=== PATIENT | male | born 1950 | race Caucasian/White ===

== ENCOUNTER → 2017-06-13 | Outpatient (CLI) | payer MEDICARE, BC ==
--- NOTE | 2017-06-13 12:41 | EST ---
EXERCISE STRESS AGE: 66 SEX: M HT: 58" WT: 268 PROTOCOL: Alfonzo Stress Test STAGE: II DURATION OF EXERCISE: 6:45 HEART RATE REST: 70 BLOOD PRESSURE REST: 161/73 MAXIMUM HEART RATE ACHIEVED: 133 MAXIMUM BLOOD PRESSURE: 237/68 85% MPHR: 130 100% MPHR: 153 METS: 8.1 INDICATIONS: Physical. Cardiac evaluation. CLINICAL INFORMATION: Baseline EKG shows sinus rhythm, normal axis, normal intervals. Patient exercised on Alfonzo protocol for a total of 6 minutes and 45 seconds achieving 8 METS, 86% of predicted maximal heart rate without chest pain or diagnostic ST-segment depression. CONCLUSION: 1. Above-average exercise tolerance. 2. Negative stress test by EKG criteria. MMODL / IJN: [id number] /
== END ==
LOC: RADNMMAIN 10:12
PROVIDERS: ATTEND Family Medicine
DX: I10 Essential (primary) hypertension (principal); E78.5 Hyperlipidemia, unspecified; Z87.891 Personal history of nicotine dependence; Z82.49 Family history of ischemic heart disease and other diseases of the circulatory system
CPT/HCPCS: 93017

== ENCOUNTER → 2019-02-11 | Outpatient (CLI) | payer MEDICARE, BC ==
--- NOTE | 2019-02-11 10:42 | ECHOF ---
Referral Reason:I10 essential hypertension MEASUREMENTS -------- HEIGHT: 172.7 cm WEIGHT: 120.2 kg BP: 188/87 RVIDd: 3.4 cm (< 3.3) IVSd: 1.2 cm (0.6 - 1.1) LVIDd: 4.8 cm (3.9 - 5.3) LVPWd: 1.3 cm (0.6 - 1.1) IVSs: 1.7 cm LVIDs: 3.2 cm LVPWs: 1.8 cm LA Diam: 3.4 cm (2.7 - 3.8) LAESV Index (A-L): 28.47 ml/m Ao Diam: 3.1 cm (2.0 - 3.7) AV Cusp: 2.0 cm (1.5 - 2.6) MV EXCURSION: 18.395 mm (> 18.000) MV EF SLOPE: 116 mm/s (70 - 150) EPSS: 0.3 cm MV E Casey: 0.72 m/s MV DecT: 245 ms MV A Casey: 0.71 m/s MV E/A Ratio: 1.01 AV maxP.49 mmHg AV meanP.09 mmHg FINDINGS -------- Sinus rhythm. This was a technically adequate study. The left ventricular size is normal. There is mild concentric left ventricular hypertrophy. Overa ll left ventricular systolic function is normal with, an EF between 60 - 65 %. The right ventricle is mildly enlarged. Normal LA size by volume 22+/-6 ml/m2. The right atrium is normal in size. Interatrial and interventricular septum intact. There is mild aortic valve sclerosis. There is mild aortic stenosis present. The mitral valve is normal. The tricuspid valve appears structurally normal. The pulmonic valve was not well visualized. The aortic root size is normal. Normal inferior vena cava with normal inspiratory collapse consistent with estimated right atrial pre ssure of 5 mmHg. There is no pericardial effusion. CONCLUSIONS -------- 1. Sinus rhythm. 2. This was a technically adequate study. 3. The left ventricular size is normal. 4. There is mild concentric left ventricular hypertrophy. 5. Overall left ventricular systolic function is normal with, an EF between 60 - 65 %. 6. The right ventricle is mildly enlarged. 7. Normal LA size by volume 22+/-6 ml/m2. 8. The right atrium is normal in size. 9. Interatrial and interventricular septum intact. 10. There is mild aortic valve sclerosis. 11. There is mild aortic stenosis present. 12. The mitral valve is normal. 13. The tricuspid valve appears structurally normal. 14. The pulmonic valve was not well visualized. 15. The aortic root size is normal. 16. Normal inferior vena cava with normal inspiratory collapse consistent with estimated right atrial pressure of 5 mmHg. 17. There is no pericardial effusion. REPORT SPECIALIST: Mray Kirby RDCS
== END | disposition home or self-care (01) ==
LOC: RADECHMAIN 08:18
PROVIDERS: ATTEND Nurse Practitioner Family
DX: I35.0 Nonrheumatic aortic (valve) stenosis (principal); E78.5 Hyperlipidemia, unspecified; I10 Essential (primary) hypertension
CPT/HCPCS: 93306

== ENCOUNTER 2020-07-22 15:49 | Emergency (ER) | payer MEDICARE, BC ==
[2020-07-22] MEDS ORDERED: ACETAMINOPHEN TAB 500 MG TAB PO STA (16:28)
--- NOTE | 2020-07-22 16:32 | ED ---
General Adult HPI - General Chief complaint: Recheck/Abnormal Lab/Rx Stated complaint: Shaking Time Seen by Provider: 07/22/20 16:10 Source: patient, family, RN notes reviewed Mode of arrival: ambulatory Limitations: no limitations - History of Present Illness Initial comments: Patient is a pleasant 70-year-old male presenting to the emergency Department with complaints of shaking. Patient had mild symptoms yesterday, worse today. Patient did take Motrin around 2 hours ago. Patient states shaking has started to improve. Patient did have some nausea earlier. No vomiting. No abdominal pain. patient diarrhea. No cough or dyspnea. No upper a story symptoms. No rash. No headache. Patient did have rotavirus infection back in April. Yoon cavanaugh received his first immunization between 2 and 2 and half weeks ago. - Related Data Previous Rx's Medication Instructions Recorded Amoxic-Pot Clav 875-125Mg 1 tab PO BID 7 Days #14 tab 07/22/20 [Augmentin 875-125] Allergies Allergy/AdvReac Type Severity Reaction Status Date / Time No Known Allergies Allergy Verified 07/22/20 16:07 Review of Systems ROS Statement: Those systems with pertinent positive or pertinent negative responses have been documented in the HPI. ROS Other: All systems not noted in ROS Statement are negative. Constitutional: Reports: chills Eyes: Denies: eye pain ENT: Denies: ear pain Respiratory: Denies: cough, dyspnea Cardiovascular: Denies: chest pain Endocrine: Denies: fatigue Gastrointestinal: Reports: nausea. Denies: abdominal pain, vomiting Genitourinary: Denies: dysuria Musculoskeletal: Denies: back pain Skin: Denies: rash Neurological: Denies: headache, weakness Past Medical History Past Medical History: Diabetes Mellitus, Hyperlipidemia, Hypertension History of Any Multi-Drug Resistant Organisms: None Reported Past Surgical History: No Surgical Hx Reported Smoking Status: Former smoker General Exam Limitations: no limitations General appearance: alert, in no apparent distress Head exam: Present: normocephalic Eye exam: Present: normal appearance ENT exam: Present: normal oropharynx Neck exam: Present: normal inspection. Absent: tenderness, meningismus Respiratory exam: Present: normal lung sounds bilaterally Cardiovascular Exam: Present: regular rate, normal rhythm GI/Abdominal exam: Present: soft. Absent: tenderness Extremities exam: Present: pedal edema (States chronic and unchanged). Absent: calf tenderness Neurological exam: Present: alert Psychiatric exam: Present: normal affect, normal mood Skin exam: Present: normal color. Absent: rash Course Vital Signs 07/22/20 07/22/20 07/22/20 16:03 18:09 19:31 Temperature 101.1 F H 103 F H 101.3 F H Pulse Rate 105 H 119 H 120 H Respiratory 18 16 16 Rate Blood Pressure 185/69 143/65 124/66 O2 Sat by Pulse 97 97 95 Oximetry EKG Findings - EKG Comments: EKG Findings:: Sinus tachycardia 121. UT 200. QRS 88. QT 296. QTc 420. Normal axis. Normal QRS. No acute ST change. Medical Decision Making - Medical Decision Making Patient reevaluated and states he started to feel better. Secondary to white blood cell count, fever, and tachycardia patient was advised for admission. Case was discussed with Dr. ramirez, covering for hospital call, who does agree with admission. Consult was replaced with infectious disease Dr. Peraza. Patient updated regarding this however refuses. Patient states he is feeling better and it is not necessary for him to stay in the hospital. Patient does demonstrate medical decision making. Patient is aware of recommendation. Patient will leave against pediatric medical assistant. - Lab Data Result diagrams: 07/22/20 16:55 07/22/20 16:55 Lab Results 07/22/20 07/22/20 07/22/20 Range/Units 16:55 16:55 16:55 WBC 14.5 H (3.8-10.6) k/uL RBC 5.13 (4.30-5.90) m/uL Hgb 14.8 (13.0-17.5) gm/dL Hct 43.6 (39.0-53.0) % MCV 85.0 (80.0-100.0) fL MCH 28.8 (25.0-35.0) pg MCHC 33.8 (31.0-37.0) g/dL RDW 13.6 (11.5-15.5) % Plt Count 171 (150-450) k/uL MPV 8.1 Neutrophils % 93 % Lymphocytes % 3 % Monocytes % 3 % Eosinophils % 1 % Basophils % 0 % Neutrophils # 13.4 H (1.3-7.7) k/uL Lymphocytes # 0.5 L (1.0-4.8) k/uL Monocytes # 0.5 (0-1.0) k/uL Eosinophils # 0.1 (0-0.7) k/uL Basophils # 0.0 (0-0.2) k/uL PT 10.4 (9.0-12.0) sec INR 1.0 (<1.2) APTT 22.3 (22.0-30.0) sec Sodium 138 (137-145) mmol/L Potassium 4.0 (3.5-5.1) mmol/L Chloride 103 (98-107) mmol/L Carbon Dioxide 28 (22-30) mmol/L Anion Gap 7 mmol/L BUN 21 H (9-20) mg/dL Creatinine 0.94 (0.66-1.25) mg/dL Est GFR (CKD-EPI)AfAm >90 (>60 ml/min/1.73 sqM) Est GFR (CKD-EPI)NonAf 82 (>60 ml/min/1.73 sqM) Glucose 149 H (74-99) mg/dL Plasma Lactic Acid Jp (0.7-2.0) mmol/L Calcium 9.3 (8.4-10.2) mg/dL Magnesium 1.8 (1.6-2.3) mg/dL Total Bilirubin 0.8 (0.2-1.3) mg/dL AST 29 (17-59) U/L ALT 23 (4-49) U/L Alkaline Phosphatase 75 (38-126) U/L Lactate Dehydrogenase 536 (313-618) U/L C-Reactive Protein <5.0 (<10.0) mg/L Total Protein 7.1 (6.3-8.2) g/dL Albumin 4.3 (3.5-5.0) g/dL Urine Color Urine Appearance (Clear) Urine pH (5.0-8.0) Ur Specific [place] (1.001-1.035) Urine Protein (Negative) Urine Glucose (UA) (Negative) Urine Ketones (Negative) Urine Blood (Negative) Urine Nitrite (Negative) Urine Bilirubin (Negative) Urine Urobilinogen (<2.0) mg/dL Ur Leukocyte Esterase (Negative) Urine RBC (0-5) /hpf Urine WBC (0-5) /hpf Ur Squamous Epith Cells (0-4) /hpf 02/17/21 02/17/21 Range/Units 16:55 16:55 WBC (3.8-10.6) k/uL RBC (4.30-5.90) m/uL Hgb (13.0-17.5) gm/dL Hct (39.0-53.0) % MCV (80.0-100.0) fL MCH (25.0-35.0) pg MCHC (31.0-37.0) g/dL RDW (11.5-15.5) % Plt Count (150-450) k/uL MPV Neutrophils % % Lymphocytes % % Monocytes % % Eosinophils % % Basophils % % Neutrophils # (1.3-7.7) k/uL Lymphocytes # (1.0-4.8) k/uL Monocytes # (0-1.0) k/uL Eosinophils # (0-0.7) k/uL Basophils # (0-0.2) k/uL PT (9.0-12.0) sec INR (<1.2) APTT (22.0-30.0) sec Sodium (137-145) mmol/L Potassium (3.5-5.1) mmol/L Chloride (98-107) mmol/L Carbon Dioxide (22-30) mmol/L Anion Gap mmol/L BUN (9-20) mg/dL Creatinine (0.66-1.25) mg/dL Est GFR (CKD-EPI)AfAm (>60 ml/min/1.73 sqM) Est GFR (CKD-EPI)NonAf (>60 ml/min/1.73 sqM) Glucose (74-99) mg/dL Plasma Lactic Acid Jp 1.8 (0.7-2.0) mmol/L Calcium (8.4-10.2) mg/dL Magnesium (1.6-2.3) mg/dL Total Bilirubin (0.2-1.3) mg/dL AST (17-59) U/L ALT (4-49) U/L Alkaline Phosphatase (38-126) U/L Lactate Dehydrogenase (313-618) U/L C-Reactive Protein (<10.0) mg/L Total Protein (6.3-8.2) g/dL Albumin (3.5-5.0) g/dL Urine Color Yellow Urine Appearance Clear (Clear) Urine pH 6.0 (5.0-8.0) Ur Specific [place] 1.019 (1.001-1.035) Urine Protein Negative (Negative) Urine Glucose (UA) Negative (Negative) Urine Ketones Trace H (Negative) Urine Blood Negative (Negative) Urine Nitrite Negative (Negative) Urine Bilirubin Negative (Negative) Urine Urobilinogen 4.0 (<2.0) mg/dL Ur Leukocyte Esterase Trace H (Negative) Urine RBC <1 (0-5) /hpf Urine WBC 3 (0-5) /hpf Ur Squamous Epith Cells <1 (0-4) /hpf - Radiology Data Radiology results: image reviewed (Chest x-ray reveals no acute process) Disposition Clinical Impression: Fever Disposition: Left Against Medical Advice Instructions (If sedation given, give patient instructions): Fever in Adults (ED) Additional Instructions: please do follow-up with primary care physician tomorrow. [id number] Tylenol or Motrin as needed. Return for uncontrolled fevers, weakness, difficulty breathing, worsening or changing symptoms or other concerns. Prescription for diabetic has been sent to your pharmacy. [facility] [place] Prescriptions: Amoxic-Pot Clav 875-125Mg [Augmentin 875-125] 1 tab PO BID 7 Days #14 tab Is patient prescribed a controlled substance at d/c from ED?: No Referrals: Angelica Magallon III, MD [STAFF PHYSICIAN] - 1-2 days Time of Disposition: 20:10
[2020-07-22 17:20] LABS: Appearance,Urine Clear (Clear); Bilirubin,Urine Negative (Negative); Blood,Urine Negative (Negative); Color,Urine Yellow; Glucose,Urine (UA) Negative (Negative); Ketones,Urine Trace (Negative); Leukocyte Esterase,Urine Trace (Negative); Nitrite,Urine Negative (Negative); Protein,Urine Negative (Negative); RBC,Urine <1 /hpf (0-5); Specific Gravity,Urine 1.019 (1.001-1.035); Squamous Epithelial Cell,Urine <1 /hpf (0-4); WBC,Urine 3 /hpf (0-5)
[2020-07-22 17:21] LABS: ALT 23 U/L (4-49); AST 29 U/L (17-59); African American GFR (CKD) >90 (>60 ml/min/1.73 sqM); Albumin 4.3 g/dL (3.5-5.0); Alkaline Phosphatase 75 U/L (38-126); Anion Gap 7 mmol/L; Blood Urea Nitrogen 21 mg/dL (9-20); C Reactive Protein <5.0 mg/L (<10.0); Calcium 9.3 mg/dL (8.4-10.2); Carbon Dioxide 28 mmol/L (22-30); Chloride 103 mmol/L (98-107); Glucose 149 mg/dL (74-99); LDH 536 U/L (313-618); Magnesium 1.8 mg/dL (1.6-2.3); Non-African American GFR(CKD) 82 (>60 ml/min/1.73 sqM); Sodium 138 mmol/L (137-145); Total Bilirubin 0.8 mg/dL (0.2-1.3); Total Protein 7.1 g/dL (6.3-8.2)
[2020-07-22 17:35] LABS: Basophils % (A) 0 %; Eosinophils # (A) 0.1 k/uL (0-0.7); Eosinophils % (A) 1 %; HCT 43.6 % (39.0-53.0); HGB 14.8 gm/dL (13.0-17.5); Lymphocytes # (A) 0.5 k/uL (1.0-4.8); Lymphocytes % (A) 3 %; MCH 28.8 pg (25.0-35.0); MCHC 33.8 g/dL (31.0-37.0); Mean Platelet Volume 8.1; Monocytes # (A) 0.5 k/uL (0-1.0); Monocytes % (A) 3 %; Neutrophils # (A) 13.4 k/uL (1.3-7.7); Neutrophils % (A) 93 %; Platelet Count 171 k/uL (150-450); RBC 5.13 m/uL (4.30-5.90); RDW 13.6 % (11.5-15.5); WBC 14.5 k/uL (3.8-10.6)
[2020-07-22 17:43] LABS: Partial Thromboplastin Time 22.3 sec (22.0-30.0); Prothrombin Time 10.4 sec (9.0-12.0)
--- NOTE | 2020-07-22 18:01 | XR ---
EXAMINATION TYPE: XR chest 2V DATE OF EXAM: 07/22/2020 COMPARISON: NONE HISTORY: Fever. Hypertension. TECHNIQUE: 2 views FINDINGS: Heart is normal. Lungs are clear of consolidation. There is no hilar masses. Bony thorax is intact. Thoracic aorta is atheromatous. IMPRESSION: No active cardiopulmonary disease.
[2020-07-22 18:09] VITALS: RESP 16
[2020-07-22] MEDS ORDERED: IBUPROFEN 600 MG TAB PO STA (18:26)
[2020-07-22 19:34] VITALS: BP 124/66
[2020-07-22 21:05] VITALS: PULSE 115; TEMP 99.1
[2020-07-23 02:08] LABS: Ferritin 243.3 ng/mL (22.0-322.0)
== END 2020-07-22 20:41 | disposition left against medical advice (07) ==
LOC: EC 15:49
DX: R50.9 Fever, unspecified (principal); R00.0 Tachycardia, unspecified; Z87.891 Personal history of nicotine dependence; Z53.29 Procedure and treatment not carried out because of patient's decision for other reasons
CPT/HCPCS: 36415; 71046; 80053; 81001; 82728; 83605; 83615; 83735; 84145; 85025; 85610; 85730; 86140; 87040; 93005; 99284

== ENCOUNTER 2020-07-23 09:20 | Inpatient (IN) | payer BC, MEDICARE ==
[2020-07-23] MEDS ORDERED: PIPERACILLIN-TAZOBACTAM 3.375 GM in SODIUM CHLORIDE 0.9% 100 ML IVPB STA (10:03)
[2020-07-23] MEDS ORDERED: VANCOMYCIN IV PER PHARMACY 1 EACH MISC MISCELLANE PRN (10:03)
[2020-07-23] MEDS ORDERED: VANCOMYCIN 2,250 MG in SODIUM CHLORIDE 0.9% 500 ML 500 ML IVPB ONE (10:15)
--- NOTE | 2020-07-23 10:29 | ED ---
General Adult HPI - General Chief complaint: Extremity Problem,Nontraumatic Stated complaint: Leg swelling Source: patient, family, RN notes reviewed, old records reviewed Mode of arrival: ambulatory Limitations: no limitations - History of Present Illness Initial comments: This is a 70-year-old male who presents emergency Department stating that he was here last night but refused to stay. Patient comes back because his leg is more red and more swollen and continues to have a temperature. Patient states she's been to her Motrin Tylenol throughout the night. Patient states she was given a prescription for and about if they did not get it filled. Patient denies any difficulty breathing shortness of breath or cough per patient denies abdominal pain patient denies nausea vomiting diarrhea. Patient headache patient denies numbness weakness. Patient states his temperature was 103 at one point. - Related Data Home Medications Medication Instructions Recorded Confirmed Aspirin EC [Ecotrin Low Dose] 81 mg PO DAILY 07/23/20 07/23/20 Furosemide [Lasix] 20 mg PO BID 07/23/20 07/23/20 Potassium Chloride ER [K-Dur 10] 10 meq PO DAILY 07/23/20 07/23/20 Simvastatin [Zocor] 80 mg PO HS 07/23/20 07/23/20 amLODIPine [Norvasc] 5 mg PO BID 07/23/20 07/23/20 lisinopriL 20 mg PO BID 07/23/20 07/23/20 metFORMIN HCL [Glucophage] 500 mg PO DAILY 07/23/20 07/23/20 Allergies Allergy/AdvReac Type Severity Reaction Status Date / Time No Known Allergies Allergy Verified 07/23/20 10:57 Review of Systems ROS Statement: Those systems with pertinent positive or pertinent negative responses have been documented in the HPI. ROS Other: All systems not noted in ROS Statement are negative. Past Medical History Past Medical History: Diabetes Mellitus, Hyperlipidemia, Hypertension History of Any Multi-Drug Resistant Organisms: None Reported Past Surgical History: No Surgical Hx Reported Smoking Status: Former smoker Past Alcohol Use History: None Reported Past Drug Use History: None Reported - Past Family History Father Family Medical History: Hypertension Additional Family Medical History / Comment(s): Father is . Mother Family Medical History: Hypertension Additional Family Medical History / Comment(s): Mother is . General Exam - General Exam Comments Initial Comments: GENERAL: Patient is well-developed and well-nourished. Patient is nontoxic and well- hydrated and is in mild distress. ENT: Neck is soft and supple. No significant lymphadenopathy is noted. Oropharynx is clear. Moist mucous membranes. Neck has full range of motion without eliciting any pain. EYES: The sclera were anicteric and conjunctiva were pink and moist. Extraocular movements were intact and pupils were equal round and reactive to light. Eyelids were unremarkable. PULMONARY: Unlabored respirations. Good breath sounds bilaterally. No audible rales rhonchi or wheezing was noted. CARDIOVASCULAR: There is a regular rate and rhythm without any murmurs gallops or rubs. ABDOMEN: Soft and nontender with normal bowel sounds. SKIN: Skin is clear with no lesions or rashes and otherwise unremarkable. NEUROLOGIC: Patient is alert and oriented x3. Cranial nerves II through XII are grossly intact. Motor and sensory are also intact. Normal speech, volume and content. Symmetrical smile. MUSCULOSKELETAL: Left lower leg is swollen and erythematous there is some weeping out of a small opening on the anterior aspect of the leg. Patient has no significant calf tenderness. LYMPHATICS: No significant lymphadenopathy is noted PSYCHIATRIC: Normal psychiatric evaluation. Limitations: no limitations Course Vital Signs 07/23/20 07/23/20 09:29 12:00 Temperature 98.7 F 98.5 F Pulse Rate 101 H 94 Respiratory 16 16 Rate Blood Pressure 96/59 112/62 O2 Sat by Pulse 95 97 Oximetry Medical Decision Making - Medical Decision Making I started the patient on antibiotics in the emergency department. I spoke with Dr. Roa he agreed to admit the patient admitted the patient wrote admitting orders. EKG showed normal sinus rhythm at 89 bpm [place] interval 158 QRS is 80 QT interval 3:30 QTC is 411. - Lab Data Result diagrams: 07/23/20 10:37 07/23/20 10:37 Lab Results 07/23/20 07/23/20 07/23/20 Range/Units 10:37 10:37 10:37 WBC 18.1 H (3.8-10.6) k/uL RBC 4.95 (4.30-5.90) m/uL Hgb 14.4 (13.0-17.5) gm/dL Hct 42.3 (39.0-53.0) % MCV 85.5 (80.0-100.0) fL MCH 29.2 (25.0-35.0) pg MCHC 34.1 (31.0-37.0) g/dL RDW 13.6 (11.5-15.5) % Plt Count 194 (150-450) k/uL MPV 8.4 Neutrophils % (Manual) 79 % Band Neuts % (Manual) 14 % Lymphocytes % (Manual) 1 % Monocytes % (Manual) 2 % Metamyelocytes % 4 % Myelocytes % 1 % Neutrophils # (Manual) 16.80 H (1.3-7.7) k/uL Lymphocytes # (Manual) 0.18 L (1.0-4.8) k/uL Monocytes # (Manual) 0.36 (0-1.0) k/uL Metamyelocytes # (Man) 0.72 H (0) k/uL Myelocytes # (Manual) 0.18 H (0) k/uL Nucleated RBCs 0 (0-0) /100 WBC Manual Slide Review Performed PT 11.5 (9.0-12.0) sec INR 1.1 (<1.2) APTT 25.5 (22.0-30.0) sec Sodium 135 L (137-145) mmol/L Potassium 3.7 (3.5-5.1) mmol/L Chloride 101 (98-107) mmol/L Carbon Dioxide 25 (22-30) mmol/L Anion Gap 9 mmol/L BUN 32 H (9-20) mg/dL Creatinine 1.74 H (0.66-1.25) mg/dL Est GFR (CKD-EPI)AfAm 45 (>60 ml/min/1.73 sqM) Est GFR (CKD-EPI)NonAf 39 (>60 ml/min/1.73 sqM) Glucose 114 H (74-99) mg/dL Lactic Ac Sepsis Rflx Plasma Lactic Acid Jp (0.7-2.0) mmol/L Calcium 9.4 (8.4-10.2) mg/dL Total Bilirubin 1.1 (0.2-1.3) mg/dL AST 25 (17-59) U/L ALT 20 (4-49) U/L Alkaline Phosphatase 46 (38-126) U/L Total Protein 6.0 L (6.3-8.2) g/dL Albumin 3.4 L (3.5-5.0) g/dL Coronavirus (PCR) (Not Detectd) 07/23/20 07/23/20 07/23/20 Range/Units 10:37 10:37 11:17 WBC (3.8-10.6) k/uL RBC (4.30-5.90) m/uL Hgb (13.0-17.5) gm/dL Hct (39.0-53.0) % MCV (80.0-100.0) fL MCH (25.0-35.0) pg MCHC (31.0-37.0) g/dL RDW (11.5-15.5) % Plt Count (150-450) k/uL MPV Neutrophils % (Manual) % Band Neuts % (Manual) % Lymphocytes % (Manual) % Monocytes % (Manual) % Metamyelocytes % % Myelocytes % % Neutrophils # (Manual) (1.3-7.7) k/uL Lymphocytes # (Manual) (1.0-4.8) k/uL Monocytes # (Manual) (0-1.0) k/uL Metamyelocytes # (Man) (0) k/uL Myelocytes # (Manual) (0) k/uL Nucleated RBCs (0-0) /100 WBC Manual Slide Review PT (9.0-12.0) sec INR (<1.2) APTT (22.0-30.0) sec Sodium (137-145) mmol/L Potassium (3.5-5.1) mmol/L Chloride (98-107) mmol/L Carbon Dioxide (22-30) mmol/L Anion Gap mmol/L BUN (9-20) mg/dL Creatinine (0.66-1.25) mg/dL Est GFR (CKD-EPI)AfAm (>60 ml/min/1.73 sqM) Est GFR (CKD-EPI)NonAf (>60 ml/min/1.73 sqM) Glucose (74-99) mg/dL Lactic Ac Sepsis Rflx Y Plasma Lactic Acid Jp 3.6 H* (0.7-2.0) mmol/L Calcium (8.4-10.2) mg/dL Total Bilirubin (0.2-1.3) mg/dL AST (17-59) U/L ALT (4-49) U/L Alkaline Phosphatase (38-126) U/L Total Protein (6.3-8.2) g/dL Albumin (3.5-5.0) g/dL Coronavirus (PCR) Not Detected (Not Detectd) Disposition Clinical Impression: Cellulitis of left leg, Sepsis Disposition: ADMITTED IP TO THIS [facility] Time of Disposition: 12:10
[2020-07-23] MEDS: SODIUM CHLORIDE 0.9% 500 ML 500 ML IV SCH ×2 (10:39→11:10)
[2020-07-23 11:08] LABS: Albumin 3.4 g/dL (3.5-5.0); Calcium 9.4 mg/dL (8.4-10.2); Potassium 3.7 mmol/L (3.5-5.1); Total Bilirubin 1.1 mg/dL (0.2-1.3)
[2020-07-23 11:11] LABS: HCT 42.3 % (39.0-53.0); HGB 14.4 gm/dL (13.0-17.5); MCH 29.2 pg (25.0-35.0); MCHC 34.1 g/dL (31.0-37.0); MCV 85.5 fL (80.0-100.0); Mean Platelet Volume 8.4; Platelet Count 194 k/uL (150-450); RBC 4.95 m/uL (4.30-5.90); RDW 13.6 % (11.5-15.5); WBC 18.1 k/uL (3.8-10.6)
[2020-07-23 11:13] LABS: INR 1.1 (<1.2)
[2020-07-23 11:14] LABS: Partial Thromboplastin Time 25.5 sec (22.0-30.0); Prothrombin Time 11.5 sec (9.0-12.0)
[2020-07-23 11:30] LABS: Band Neutrophils % 14 %; Lymphocytes # (M) 0.18 k/uL (1.0-4.8); Metamyelocytes # (M) 0.72 k/uL (0); Metamyelocytes % 4 %; Monocytes # (M) 0.36 k/uL (0-1.0); Myelocytes # (M) 0.18 k/uL (0); Myelocytes % 1 %; Neutrophils % (M) 79 %; Nucleated Red Blood Cells 0 /100 WBC (0-0); Total Cells Counted 200
[2020-07-23] MEDS ORDERED: SODIUM CHLORIDE 0.9% 1,000 ML IV ONE (12:13)
[2020-07-23] MEDS ORDERED: traMADol 50 MG TAB PO PRN (14:31)
--- NOTE | 2020-07-23 15:43 | P.HPIM ---
History of Present Illness 70-year-old male who presents emergency Department stating that he was here last night but refused to stay. Patient comes back because his leg is more red and more swollen and continues to have a temperature. Patient states she's been to her Motrin Tylenol throughout the night. Patient states she was given a prescription for and about if they did not get it filled. Patient denies any difficulty breathing shortness of breath or cough per patient denies abdominal pain patient denies nausea vomiting diarrhea. Patient headache patient denies numbness weakness. Patient fever temperature was 103 at home.. And had normal temperature here. Review of Systems REVIEW OF SYSTEMS: CONSTITUTIONAL: No fever, no malaise, no fatigue. HEENT: No recent visual problems or hearing problems. Denied any sore throat. CARDIOVASCULAR: No chest pain, orthopnea, PND, no palpitations, no syncope. PULMONARY: No shortness of breath, no cough, no hemoptysis. GASTROINTESTINAL: No diarrhea, no nausea, no vomiting, no abdominal pain. NEUROLOGICAL: No headaches, no weakness, no numbness. HEMATOLOGICAL: Denies any bleeding or petechiae. GENITOURINARY: Denies any burning micturition, frequency, or urgency. MUSCULOSKELETAL/RHEUMATOLOGICAL: Denies any joint pain, swelling, or any muscle pain. ENDOCRINE: Denies any polyuria or polydipsia. The rest of the 14-point review of systems is negative. Past Medical History Past Medical History: Diabetes Mellitus, Hyperlipidemia, Hypertension Additional Past Medical History / Comment(s): NIDDM type II, covid + 04/2020, bilateral lower leg edema, HYDABURG bilaterally. History of Any Multi-Drug Resistant Organisms: None Reported Past Surgical History: No Surgical Hx Reported Additional Past Surgical History / Comment(s): colonoscopy Past Anesthesia/Blood Transfusion Reactions: No Reported Reaction Smoking Status: Former smoker Past Alcohol Use History: None Reported Past Drug Use History: None Reported - Past Family History Father Family Medical History: Hypertension Additional Family Medical History / Comment(s): Father is . Mother Family Medical History: Hypertension Additional Family Medical History / Comment(s): Mother is . Medications and Allergies Home Medications Medication Instructions Recorded Confirmed Type Aspirin EC [Ecotrin Low Dose] 81 mg PO DAILY 07/23/20 07/23/20 History Furosemide [Lasix] 20 mg PO BID 07/23/20 07/23/20 History Potassium Chloride ER [K-Dur 10] 10 meq PO DAILY 07/23/20 07/23/20 History Simvastatin [Zocor] 80 mg PO HS 07/23/20 07/23/20 History amLODIPine [Norvasc] 5 mg PO BID 07/23/20 07/23/20 History lisinopriL 20 mg PO BID 07/23/20 07/23/20 History metFORMIN HCL [Glucophage] 500 mg PO DAILY 07/23/20 07/23/20 History Allergies Allergy/AdvReac Type Severity Reaction Status Date / Time No Known Allergies Allergy Verified 07/23/20 10:57 Physical Exam Vitals: Vital Signs Temp Pulse Resp BP Pulse Ox 07/23/20 15:28 95 07/23/20 12:00 98.5 F 94 16 112/62 97 07/23/20 09:29 98.7 F 101 H 16 96/59 95 Intake and Output 07/23/20 07/23/20 07/23/20 06:59 14:59 22:59 Other: Weight 122.47 kg PHYSICAL EXAMINATION: GENERAL: The patient is alert and oriented x3, not in any acute distress. Well developed, well nourished. HEENT: Pupils are round and equally reacting to light. EOMI. No scleral icterus. No conjunctival pallor. Normocephalic, atraumatic. No pharyngeal erythema. No thyromegaly. CARDIOVASCULAR: S1 and S2 present. No murmurs, rubs, or gallops. PULMONARY: Chest is clear to auscultation, no wheezing or crackles. ABDOMEN: Soft, nontender, nondistended, normoactive bowel sounds. No palpable organomegaly. MUSCULOSKELETAL: No joint swelling or deformity. EXTREMITIES: No cyanosis, clubbing, edema and edema of the left leg NEUROLOGICAL: Gross neurological examination did not reveal any focal deficits. SKIN: Edema of the left leg with redness and swelling involving the whole leg extending from proximal ankle area to the knee circumferential with local is of temperature . Results CBC & Chem 7: 07/23/20 10:37 07/23/20 10:37 Labs: Abnormal Lab Results - Last 24 Hours (Table) 07/23/20 07/23/20 07/23/20 Range/Units 10:37 10:37 10:37 WBC 18.1 H (3.8-10.6) k/uL Neutrophils # (Manual) 16.80 H (1.3-7.7) k/uL Lymphocytes # (Manual) 0.18 L (1.0-4.8) k/uL Metamyelocytes # (Man) 0.72 H (0) k/uL Myelocytes # (Manual) 0.18 H (0) k/uL Sodium 135 L (137-145) mmol/L BUN 32 H (9-20) mg/dL Creatinine 1.74 H (0.66-1.25) mg/dL Glucose 114 H (74-99) mg/dL Plasma Lactic Acid Jp 3.6 H* (0.7-2.0) mmol/L Total Protein 6.0 L (6.3-8.2) g/dL Albumin 3.4 L (3.5-5.0) g/dL 07/23/20 Range/Units 13:57 WBC (3.8-10.6) k/uL Neutrophils # (Manual) (1.3-7.7) k/uL Lymphocytes # (Manual) (1.0-4.8) k/uL Metamyelocytes # (Man) (0) k/uL Myelocytes # (Manual) (0) k/uL Sodium (137-145) mmol/L BUN (9-20) mg/dL Creatinine (0.66-1.25) mg/dL Glucose (74-99) mg/dL Plasma Lactic Acid Jp 4.4 H* (0.7-2.0) mmol/L Total Protein (6.3-8.2) g/dL Albumin (3.5-5.0) g/dL Thrombosis Risk Factor Assmnt - Choose All That Apply Any of the Below Risk Factors Present?: Yes Each Factor Represents 1 point: Sepsis (< 1month), Swollen legs (current) Other Risk Factors: Yes Each Risk Factor Represents 2 Points: Age 61-74 years Other congenital or acquired thrombophilia - If yes, enter type in comment: No Thrombosis Risk Factor Assessment Total Risk Factor Score: 4 Thrombosis Risk Factor Assessment Level: Moderate Risk Assessment and Plan Plan: -Left leg cellulitis: Patient is on both vancomycin as well as Unasyn which will be continued for now, infectious disease was consulted. -Rule out a DVT: Doppler the left lower extremity was ordered -Acute renal failure baseline creatinine is around 1 present creatinine is 1.74 hold off losartan patient will be started on IV fluids, hold metformin and Lasix. Patient had the normal ejection fraction the past. -Hypertension patient is preterminal hypotensive side hold off lisinopril but continue Norvasc -Hyperlipidemia -Obesity -DVT prophylaxis with heparin subcutaneous GI prophylaxis with Pepcid
[2020-07-23] MEDS ORDERED: PIPERACILLIN-TAZOBACTAM 3.375 GM in SODIUM CHLORIDE 0.9% 100 ML IVPB SCH (16:00)
[2020-07-23] MEDS: HEPARIN SODIUM,PORCINE 5,000 UNIT/ML 1 ML VIAL SQ SCH ×2 (16:44→23:49)
[2020-07-23 16:53] LABS: Glucose,Whole Blood 109 mg/dL (75-99)
[2020-07-23] MEDS: INSULIN ASPART (NovoLOG) 100 UNIT/ML VIAL SQ SCH ×2 (16:58→20:25)
[2020-07-23] MEDS: SODIUM CHLORIDE 0.9% 1,000 ML IV SCH ×2 (17:57→23:50)
--- NOTE | 2020-07-23 18:04 | US ---
EXAMINATION TYPE: US venous doppler duplex LE LT DATE OF EXAM: 07/23/2020 3:51 PM COMPARISON: NONE CLINICAL HISTORY: left leg cellulitis. No injury. Redness started today. Pain. SIDE PERFORMED: Left TECHNIQUE: The lower extremity deep venous system is examined utilizing real time linear array sonog david with graded compression, doppler sonography and color-flow sonography. VESSELS IMAGED: Common Femoral Vein Deep Femoral Vein Greater Saphenous Vein * Femoral Vein Popliteal Vein Small Saphenous Vein * Proximal Calf Veins (* superficial vessels) FINDINGS: Grayscale, color doppler, spectral doppler imaging performed of the deep veins of the lower extremities. There is normal flow, compressibility, vascular waveforms. IMPRESSION: Negative for DVT, left lower extremity.
[2020-07-23 19:57] LABS: Glucose,Whole Blood 127 mg/dL (75-99)
[2020-07-23] MEDS: FAMOTIDINE 20 MG TAB PO SCH (21:22)
[2020-07-23] MEDS: ATORVASTATIN 40 MG TAB PO SCH (21:22)
[2020-07-23] MEDS: amLODIPine 5 MG TAB PO SCH (21:22)
[2020-07-23] MEDS ORDERED: VANCOMYCIN 2,000 MG in SODIUM CHLORIDE 0.9% 500 ML 500 ML IVPB SCH (22:00)
--- NOTE | 2020-07-24 01:04 | CONS ---
CONSULTATION DATE OF SERVICE: 07/23/2020 REASON FOR CONSULTATION: Left lower extremity cellulitis HISTORY OF PRESENT ILLNESS: The patient is a 70-year-old male who apparently did have a laceration on the right lower extremity. The patient may have sustained a few days ago while he was cleaning up the snow while getting in and out of the tractor. The patient did not mention any significant bleeding from it. However, over the last 24 hours he started running a fever of 102 degrees Fahrenheit with rigors and chills and did develop significant swelling and redness to the left lower extremity. The patient did have occasional pain to the neck, especially at that point intensity is about 3 to 4 out of 10 and no radiation. With these symptoms, the patient presented to the hospital. The patient was diagnosed with acute left lower extremity cellulitis. The patient did have lower extremity Doppler that has been negative for DVT. Patient was started on vancomycin and Zosyn. Infectious Disease was consulted for further management of antibiotic therapy. REVIEW OF SYSTEMS: Positive points have been mentioned in HPI. Rest of the systems are negative. PAST MEDICAL HISTORY: Diabetes mellitus, hypertension, hyperlipidemia. PAST SURGICAL HISTORY: No surgeries. SOCIAL HISTORY: Remote history of smoking. No drinking or drug use. FAMILY HISTORY: Father history of hypertension. Mother history of hypertension as well. ALLERGIES: No known drug allergies. MEDICATIONS: Currently include the patient is on Tylenol, Norvasc, aspirin, Lipitor, vancomycin, Zosyn, Pepcid, heparin, NovoLog, Ultram. On examination, blood pressure 97/60 with a pulse of 104, temperature 98.6. He is 95% on room air. GENERAL description: The patient is an elderly male lying in bed in no distress. RESPIRATORY system: Unlabored breathing, clear to auscultation. HEART: S1, S2. Regular rate and rhythm. ABDOMEN soft. No tenderness. No guarding. No rigidity. EXTREMITIES: Left lower extremity did have diffuse swelling and redness which is slightly warm to touch. No drainage was noticed. NEUROLOGICALLY: The patient is awake, alert, oriented x3. Mood and affect normal. LABS: Hemoglobin is 14.4, white count 18.7. Lactic acid 3.1. BUN of 32, creatinine 1.74. Liver enzymes are normal. Durant PCR is negative. Lower extremity Doppler was negative for any DVT. DIAGNOSTIC IMPRESSION AND PLAN: 1. Patient admitted to the hospital with acute left lower extremity cellulitis in this patient who did have diffuse swelling and redness with recent injury laceration likely from a gram-positive skin kenny. In view of the rapid spread, it is more likely pointing to streptococcal infection. 2. Patient who does have borderline kidney function, high risk of nephrotoxicity. PLAN: 1. Discontinue vancomycin and Zosyn. 2. We will start the patient on cefazolin 3 grams q.8 hours. 3. Jair the area of the redness. 4. We will follow on clinical condition and culture to further adjust medication if needed. Thank you for this consultation. Will follow this patient along with you. MMODL / IJN: [id number] /
[2020-07-24] MEDS: ACETAMINOPHEN TAB 325 MG TAB PO PRN ×2 (04:09→16:19)
[2020-07-24 07:16] LABS: Glucose,Whole Blood 116 mg/dL (75-99)
[2020-07-24] MEDS: HEPARIN SODIUM,PORCINE 5,000 UNIT/ML 1 ML VIAL SQ SCH ×3 (09:39→23:57)
[2020-07-24] MEDS: ASPIRIN 81 MG PO SCH (09:40)
[2020-07-24] MEDS: FAMOTIDINE 20 MG TAB PO SCH ×2 (09:40→20:40)
[2020-07-24] MEDS: amLODIPine 5 MG TAB PO SCH ×2 (09:40→20:40)
[2020-07-24] MEDS: INSULIN ASPART (NovoLOG) 100 UNIT/ML VIAL SQ SCH ×4 (11:18→20:39)
[2020-07-24 11:39] LABS: African American GFR (CKD) 62 (>60 ml/min/1.73 sqM); Anion Gap 4 mmol/L; Blood Urea Nitrogen 30 mg/dL (9-20); Calcium 8.1 mg/dL (8.4-10.2); Carbon Dioxide 25 mmol/L (22-30); Chloride 103 mmol/L (98-107); Glucose 105 mg/dL (74-99); Non-African American GFR(CKD) 54 (>60 ml/min/1.73 sqM); Potassium 3.5 mmol/L (3.5-5.1); Sodium 132 mmol/L (137-145)
[2020-07-24 12:07] LABS: Glucose,Whole Blood 105 mg/dL (75-99)
[2020-07-24] MEDS: SODIUM CHLORIDE 0.9% 1,000 ML IV SCH (12:39)
--- NOTE | 2020-07-24 14:03 | CDI ---
Documentation Clarification Form Date: 07/24/2020 01:10:02 PM From: Juanita Doran RN, CCDS Admit Date: 07/23/2020 12:13:00 PM Patient Name: Jean Maloney Visit Number: [id number] Discharge Date: ATTENTION: The Clinical Documentation Specialists (CDI) and [facility] Coding Staff appreciate your assistance in clarifying documentation. Please respond to the clarification below the line at the bottom and electronically sign. The CDI & [facility] Coding staff will review the response and follow-up if needed. Please note: Queries are made part of the Legal Health Record. If you have any questions, please contact the author of this message via ITS. Dr. Roa Your patient has the documented diagnosis of left leg cellulitis and has a history of diabetes mellitus as noted in the ED assessment on 07/23/20 A relationship between diagnoses cannot be assumed unless documented as such by the attending physician. In order to capture the severity of condition; please document the relationship, if any, between these diagnoses. History/Risk Factors: Diabetes mellitus, Hyperlipidemia, Hypertension Clinical Indicators: 70-year-old male present on 07/23 with complaint of left leg swelling and states his temperature was 103 at one point. His home medication list include Metformin HCL 500 Mg daily. Treatment: Monitor blood sugar SQ ACHS (Novolog per scale) Cefazolin 3 Gm IVPB q 8 hrs 07/24 Zosyn 3.375 Gm IVPB 07/23 (DC) Vancomycin HCL 2, 250 Mg IVPB once 07/23 (DC) Please clarify and document your clinical opinion in the progress notes and discharge summary if any relationship due to/secondary to diabetes mellitus exists between these two diagnoses. Please include clinical findings supporting your diagnosis. Cellulitis of left leg with Type 2 diabetes mellitus Other explanation of clinical findings (please specify) Unable to determine (no explanation for clinical findings) (Last Revision: March 2017) Unable to determine MTDD
--- NOTE | 2020-07-24 14:35 | CDI ---
Documentation Clarification Form Date: 07/24/2020 02:04:26 PM From: Juanita Doran RN, CCDS Admit Date: 07/23/2020 12:13:00 PM Patient Name: Jean Maloney Visit Number: [id number] Discharge Date: ATTENTION: The Clinical Documentation Specialists (CDI) and [facility] Coding Staff appreciate your assistance in clarifying documentation. Please respond to the clarification below the line at the bottom and electronically sign. The CDI & [facility] Coding staff will review the response and follow-up if needed. Please note: Queries are made part of the Legal Health Record. If you have any questions, please contact the author of this message via ITS. Dr. Lester Roa The patient presented with left leg swelling, redness and reports prior temperature of 103. 07/23 ED assessment: Cellulitis of left leg, Sepsis Please render your opinion on the ED assessment and diagnosis. History/Risk Factors: Diabetes mellitus (NIDDM Type II), Hyperlipidemia, Hypertension Clinical Indicators: 70-year-old male present on 07/23 with complaint of left leg swelling and states his temperature was 103 at one point. He was seen in ED on 07/22 and at 18.09 in ED vital signs: 143/65 119 16 103 F; WBC 14.5. He refused admission and went home against medical advice. 07/23 WBC 18.1, Neutrophils 16.80 07/23 Lactic acid: 3.6, 4.4, and 3.1 07/23 @19:42 Vital signs on admission: 97/60 104 16 98.6 95 % RA 07/24@04:05 134/73 113 14 101.5 93 % RA 07/23 ED Musculoskeletal: Left leg swollen and erythematous there is some weeping out of a small opining on the anterior aspect of the leg Treatment: Monitor blood sugar SQ ACHS (Novolog per scale) Cefazolin 3 Gm IVPB q 8 hrs 07/24 Zosyn 3.375 Gm IVPB 07/23 (DC) Vancomycin HCL 2, 250 Mg IVPB once 07/23 (DC) 07/23 IV Bolus: 500 mls x2 bags then 75mls/hr (DC 07/23) 07/23 ID Consult: left lower extremity cellulitis in this patient who did have diffuse swelling and redness with recent injury laceration likely from a gram- positive skin kenny. In your professional opinion, please clarify if these findings signify one of the following conditions, whether the condition is POA, and cause, if known: Condition Sepsis ruled out Sepsis secondary to cellulitis, ruled in, present on admission Other, please specify Unable to determine Identify the (suspected) organism Link or clarify if there is associated (due to/with): Organ failure Shock SIRS Criteria (2 or more of the following may indicate SIRS): -Temperature < 96.8F (36C) or > 101.0F (38.3C) -Heart Rate > 90 bpm -Respiratory Rate > 20 breaths/min or PaCO2 < 32 mmHg -White Blood Cell Count > 12,000 or < 4,000 cells/mm3 or > 10% bands -Lactate >2.0 mmol/L (>4.0 is equivalent to septic shock) (Last Revision: September 2017) MTDD
--- NOTE | 2020-07-24 15:43 | P.PN ---
Subjective Progress Note Date: 07/24/20 70-year-old male who presents emergency Department stating that he was here last night but refused to stay. Patient comes back because his leg is more red and more swollen and continues to have a temperature. Patient states she's been to her Motrin Tylenol throughout the night. Patient states she was given a prescription for and about if they did not get it filled. Patient denies any difficulty breathing shortness of breath or cough per patient denies abdominal pain patient denies nausea vomiting diarrhea. Patient headache patient denies numbness weakness. Patient fever temperature was 103 at home.. And had normal temperature here. 07/24/2020 Patient is seen and evaluated in follow-up continues to have left lower extremity swelling and redness and localization of temperature noted although patient states the swelling has much improved. Continues to have low-grade fevers and is responding to Tylenol and Motrin appropriately. Infectious disease was consulted and pending at this time and patient is maintained on cefazolin. Patient also had elevated creatinine and is maintained on gentle IV hydration and current sodium today is 132 with a potassium of 3.5, BUN is 30, creatinine is 1.33 and slowly trending down. Lactic acid also improved at 1.7. Will continue with gentle IV hydration and decrease the dosage with the possibility of discontinuing IV fluids tomorrow. Will repeat a.m. labs. Review of systems: Constitutional: No reports of fatigue, fever, or chills Cardiovascular: No reports of chest pain or palpitations Respiratory: No reports of shortness of breath or cough GI: No reports of nausea, vomiting, or diarrhea : No reports of dysuria or retention Neurovascular: No reports of weakness or numbness All medications have been reviewed Objective - Vital Signs Vital signs: Vital Signs Temp 99.3 F 07/24/20 07:33 Pulse 99 07/24/20 07:33 Resp 17 07/24/20 07:33 BP 102/56 07/24/20 07:33 Pulse Ox 93 L 07/24/20 04:05 Intake & Output 07/23/20 07/24/20 07/24/20 18:59 06:59 18:59 Intake Total 1710 Balance 1710 Weight 122.47 kg Intake: Intake, IV Titration 1350 Amount Piperacillin-Tazobactam 3 100 .375 gm In Sodium Chloride 0.9% 100 ml @ 25 mls/hr IVPB Q8HR [facility] Rx# :[id number] Sodium Chloride 0.9% 1, 1200 000 ml @ 100 mls/hr IV . Q10H [facility] Rx#:[id number] ceFAZolin 3 gm In Sodium 50 Chloride 0.9% 50 ml @ 100 mls/hr IVPB Q8HR [facility] Rx# :[id number] Oral 360 Other: # Voids 2 - Exam GENERAL: The patient is alert and oriented x3, not in any acute distress. Well developed, well nourished. HEENT: Pupils are round and equally reacting to light. EOMI. No scleral icterus. No conjunctival pallor. Normocephalic, atraumatic. No pharyngeal erythema. No thyromegaly. CARDIOVASCULAR: S1 and S2 present. No murmurs, rubs, or gallops. PULMONARY: Chest is clear to auscultation, no wheezing or crackles. ABDOMEN: Soft, obese, nontender, nondistended, normoactive bowel sounds. No palpable organomegaly. MUSCULOSKELETAL: No joint swelling or deformity. EXTREMITIES: No cyanosis, clubbing, edema noted of the left lower extremity NEUROLOGICAL: Gross neurological examination did not reveal any focal deficits. SKIN: Edema of the left leg with redness and swelling involving the whole leg extending from proximal ankle area to the knee circumferential with localization of temperature . Swelling and redness slightly improved - Labs CBC & Chem 7: 07/23/20 10:37 07/24/20 07:16 Labs: Abnormal Lab Results - Last 24 Hours (Table) 07/23/20 07/23/20 07/23/20 Range/Units 10:37 10:37 10:37 WBC 18.1 H (3.8-10.6) k/uL Neutrophils # (Manual) 16.80 H (1.3-7.7) k/uL Lymphocytes # (Manual) 0.18 L (1.0-4.8) k/uL Metamyelocytes # (Man) 0.72 H (0) k/uL Myelocytes # (Manual) 0.18 H (0) k/uL Sodium 135 L (137-145) mmol/L BUN 32 H (9-20) mg/dL Creatinine 1.74 H (0.66-1.25) mg/dL Glucose 114 H (74-99) mg/dL POC Glucose (mg/dL) (75-99) mg/dL Plasma Lactic Acid Jp 3.6 H* (0.7-2.0) mmol/L Total Protein 6.0 L (6.3-8.2) g/dL Albumin 3.4 L (3.5-5.0) g/dL 07/23/20 07/23/20 07/23/20 Range/Units 13:57 16:47 16:50 WBC (3.8-10.6) k/uL Neutrophils # (Manual) (1.3-7.7) k/uL Lymphocytes # (Manual) (1.0-4.8) k/uL Metamyelocytes # (Man) (0) k/uL Myelocytes # (Manual) (0) k/uL Sodium (137-145) mmol/L BUN (9-20) mg/dL Creatinine (0.66-1.25) mg/dL Glucose (74-99) mg/dL POC Glucose (mg/dL) 109 H (75-99) mg/dL Plasma Lactic Acid Jp 4.4 H* 3.1 H* (0.7-2.0) mmol/L Total Protein (6.3-8.2) g/dL Albumin (3.5-5.0) g/dL 07/23/20 07/23/20 07/24/20 Range/Units 19:54 20:00 07:08 WBC (3.8-10.6) k/uL Neutrophils # (Manual) (1.3-7.7) k/uL Lymphocytes # (Manual) (1.0-4.8) k/uL Metamyelocytes # (Man) (0) k/uL Myelocytes # (Manual) (0) k/uL Sodium (137-145) mmol/L BUN (9-20) mg/dL Creatinine (0.66-1.25) mg/dL Glucose (74-99) mg/dL POC Glucose (mg/dL) 127 H 116 H (75-99) mg/dL Plasma Lactic Acid Jp 2.5 H* (0.7-2.0) mmol/L Total Protein (6.3-8.2) g/dL Albumin (3.5-5.0) g/dL Assessment and Plan Assessment: -Left leg cellulitis: Patient is on cefazolin and both vancomycin as well as Unasyn have been discontinued, infectious disease following -Sepsis, present on admission, secondary to cellulitis of the left lower extremity -Fevers secondary to above, will continue Tylenol and Motrin and monitor vital signs closely -Diabetes mellitus type 2, will continue sliding scale and hold oral antidiabetic's and repeat BMP to monitor creatinine -Ruled out DVT: Doppler of the left lower extremity was negative -Acute renal failure baseline creatinine is around 1 present creatinine is 1.33. Improving. Continue to hold losartan and metformin and Lasix and will continue gentle IV hydration at 50 mL per hour and likely discontinue fluids tomorrow after repeat labs. -Hypertension, continue with Norvasc and monitor vital signs closely. Presently holding lisinopril due to elevated creatinine and will repeat labs in the a.m. -Hyperlipidemia -Obesity -DVT prophylaxis with heparin subcutaneous -GI prophylaxis with Pepcid
[2020-07-24] MEDS: ceFAZolin 3 GM in SODIUM CHLORIDE 0.9% 100 ML IVPB SCH ×2 (16:23→23:56)
--- NOTE | 2020-07-24 17:00 | PN ---
PROGRESS NOTE DATE OF SERVICE: 07/24/2020 REASON FOR FOLLOWUP: Left lower extremity cellulitis. INTERVAL HISTORY: The patient did spike a fever of 102 degrees Fahrenheit around 4 in the morning. The patient has been afebrile since then. The patient did mention he is really feeling slightly better. Overall swelling and redness in his left leg has slightly decreased. No chest pain, shortness of breath or cough. No abdominal pain or diarrhea. PHYSICAL EXAMINATION: Blood pressure 142/71 with a pulse of 113, temperature 100.1. He is 95% on room air. General description is an elderly male lying in bed in no distress. RESPIRATORY SYSTEM: Unlabored breathing. Clear to auscultation anteriorly. HEART: S1, S2. Regular rate and rhythm. ABDOMEN: Soft. No tenderness. LEFT LEG: Slight decrease in swelling and redness. There was minimal drainage from the wound, which has been cultured. DIAGNOSTIC IMPRESSION AND PLAN: Patient with acute left lower extremity cellulitis. Patient is covered with cefazolin. Redness has slightly decreased. He did spike a fever. That will be monitored closely. Will follow his culture and recheck inflammatory markers tomorrow. Continue with supportive care. MMODL / IJN: [id number] /
[2020-07-24 17:08] LABS: Glucose,Whole Blood 164 mg/dL (75-99)
[2020-07-24 19:49] LABS: Glucose,Whole Blood 140 mg/dL (75-99)
[2020-07-24] MEDS: ATORVASTATIN 40 MG TAB PO SCH (20:40)
[2020-07-25] MEDS: ACETAMINOPHEN TAB 325 MG TAB PO PRN ×4 (00:21→20:23)
[2020-07-25 07:13] LABS: Glucose,Whole Blood 129 mg/dL (75-99)
[2020-07-25] MEDS: ceFAZolin 3 GM in SODIUM CHLORIDE 0.9% 100 ML IVPB SCH (07:37)
[2020-07-25] MEDS: HEPARIN SODIUM,PORCINE 5,000 UNIT/ML 1 ML VIAL SQ SCH ×2 (07:37→17:25)
[2020-07-25] MEDS: FAMOTIDINE 20 MG TAB PO SCH ×2 (07:38→20:22)
[2020-07-25] MEDS: ASPIRIN 81 MG PO SCH (07:38)
[2020-07-25] MEDS: INSULIN ASPART (NovoLOG) 100 UNIT/ML VIAL SQ SCH ×4 (07:54→21:08)
[2020-07-25 11:47] LABS: HCT 36.4 % (39.6-50.0); HGB 12.1 g/dL (13.0-17.0); MCHC 33.2 g/dL (32.0-37.0); MCV 87.3 fL (80.0-97.0); Mean Platelet Volume 11.4 fL (9.5-12.2); Platelet Count 134 X 10*3/uL (140-440); RBC 4.17 X 10*6/uL (4.40-5.60); RDW 12.8 % (11.5-14.5); WBC 19.56 X 10*3/uL (4.50-10.00)
[2020-07-25 11:55] LABS: Glucose,Whole Blood 151 mg/dL (75-99)
[2020-07-25 12:05] LABS: African American GFR (CKD) 70.1 (60.0-200.0); Anion Gap 10.2 mmol/L (4.00-12.00); Calcium 8.1 mg/dL (8.7-10.3); Carbon Dioxide 25.8 mmol/L (21.6-31.8); Non-African American GFR(CKD) 60.5 (60.0-200.0); Potassium 3.2 mmol/L (3.5-5.5)
[2020-07-25] MEDS: SODIUM CHLORIDE 0.9% 1,000 ML IV SCH (12:14)
[2020-07-25] MEDS: amLODIPine 5 MG TAB PO SCH ×2 (12:15→20:23)
[2020-07-25] MEDS ORDERED: POTASSIUM CHLORIDE ER 20 MEQ TAB.ER PO STA (12:35)
[2020-07-25] MEDS ORDERED: VANCOMYCIN IV PER PHARMACY 1 EACH MISC MISCELLANE PRN ×2 (12:39→15:18)
[2020-07-25 12:40] LABS: Basophils # (A) 0.07 X 10*3/uL (0.00-0.10); Basophils % (A) 0.4 %; Eosinophils # (A) 0.14 X 10*3/uL (0.04-0.35); Eosinophils % (A) 0.7 %; Lymphocytes # (A) 0.39 X 10*3/uL (0.90-5.00); Monocytes # (A) 0.65 X 10*3/uL (0.20-1.00); Monocytes % (A) 3.3 %; Neutrophils # (A) 18.18 X 10*3/uL (1.80-7.70); Neutrophils % (A) 92.9 %
--- NOTE | 2020-07-25 13:46 | P.PN ---
Subjective 70-year-old male who presents emergency Department stating that he was here last night but refused to stay. Patient comes back because his leg is more red and more swollen and continues to have a temperature. Patient states she's been to her Motrin Tylenol throughout the night. Patient states she was given a prescription for and about if they did not get it filled. Patient denies any difficulty breathing shortness of breath or cough per patient denies abdominal pain patient denies nausea vomiting diarrhea. Patient headache patient denies numbness weakness. Patient fever temperature was 103 at home.. And had normal temperature here. 07/24/2020 Patient is seen and evaluated in follow-up continues to have left lower extremity swelling and redness and localization of temperature noted although patient states the swelling has much improved. Continues to have low-grade fevers and is responding to Tylenol and Motrin appropriately. Infectious disease was consulted and pending at this time and patient is maintained on cefazolin. Patient also had elevated creatinine and is maintained on gentle IV hydration and current sodium today is 132 with a potassium of 3.5, BUN is 30, creatinine is 1.33 and slowly trending down. Lactic acid also improved at 1.7. Will continue with gentle IV hydration and decrease the dosage with the po ssibility of discontinuing IV fluids tomorrow. Will repeat a.m. labs. 07/25/2020 Patient can use to have fevers, continues to have significant leukocytosis without any significant improvement redness and swelling is still there but covered with Alexandro bandage. Patient will be started on vancomycin patient is presently on ceftezolin. Constitutional: Denied any fatigue denied any fever. Cardio vascular: denied any chest pain, palpitations Gastrointestinal denied any nausea vomiting Pulmonary: Denied any shortness of breath cough Neurologic denied any new focal deficits All inpatient medications were reviewed and appropriate changes in these medications as dictated in the interval history and assessment and plan. Objective - Vital Signs Vital signs: Vital Signs Temp 100.4 F H 07/25/20 12:15 Pulse 104 H 07/25/20 12:15 Resp 18 07/25/20 12:15 BP 141/72 07/25/20 12:15 Pulse Ox 92 L 07/25/20 12:15 Intake & Output 07/24/20 07/25/20 07/25/20 18:59 06:59 18:59 Intake Total 700 700 Balance 700 700 Intake: Intake, IV Titration 700 700 Amount Sodium Chloride 0.9% 1, 600 600 000 ml @ 50 mls/hr IV . Q20H [facility] Rx#:[id number] ceFAZolin 3 gm In Sodium 100 100 Chloride 0.9% 100 ml @ 200 mls/hr IVPB Q8HR [facility] Rx#:[id number] Other: Voiding Method Toilet Toilet Toilet # Voids 4 - Exam GENERAL: The patient is alert and oriented x3, not in any acute distress. Well developed, well nourished. HEENT: Pupils are round and equally reacting to light. EOMI. No scleral icterus. No conjunctival pallor. Normocephalic, atraumatic. No pharyngeal erythema. No thyromegaly. CARDIOVASCULAR: S1 and S2 present. No murmurs, rubs, or gallops. PULMONARY: Chest is clear to auscultation, no wheezing or crackles. ABDOMEN: Soft, obese, nontender, nondistended, normoactive bowel sounds. No palpable organomegaly. MUSCULOSKELETAL: No joint swelling or deformity. EXTREMITIES: No cyanosis, clubbing, edema noted of the left lower extremity NEUROLOGICAL: Gross neurological examination did not reveal any focal deficits. SKIN: Edema of the left leg with redness and swelling involving the whole leg extending from proximal ankle area to the knee circumferential with localization of temperature . Swelling and redness slightly improved - Labs CBC & Chem 7: 07/25/20 08:10 07/25/20 08:10 Labs: Abnormal Lab Results - Last 24 Hours (Table) 07/24/20 07/24/20 07/25/20 Range/Units 17:07 19:47 07:12 WBC (4.50-10.00) X 10*3/uL RBC (4.40-5.60) X 10*6/uL Hgb (13.0-17.0) g/dL Hct (39.6-50.0) % Plt Count (140-440) X 10*3/uL Plt Count Comment Immature Gran # (0.00-0.04) X 10*3/uL Neutrophils # (1.80-7.70) X 10*3/uL Lymphocytes # (0.90-5.00) X 10*3/uL Potassium (3.5-5.5) mmol/L Glucose (70-110) mg/dL POC Glucose (mg/dL) 164 H 140 H 129 H (75-99) mg/dL Calcium (8.7-10.3) mg/dL 07/25/20 07/25/20 07/25/20 Range/Units 08:10 08:10 11:54 WBC 19.56 H (4.50-10.00) X 10*3/uL RBC 4.17 L (4.40-5.60) X 10*6/uL Hgb 12.1 L (13.0-17.0) g/dL Hct 36.4 L (39.6-50.0) % Plt Count 134 L (140-440) X 10*3/uL Plt Count Comment DECREASED A Immature Gran # 0.13 H (0.00-0.04) X 10*3/uL Neutrophils # 18.18 H (1.80-7.70) X 10*3/uL Lymphocytes # 0.39 L (0.90-5.00) X 10*3/uL Potassium 3.2 L (3.5-5.5) mmol/L Glucose 185 H (70-110) mg/dL POC Glucose (mg/dL) 151 H (75-99) mg/dL Calcium 8.1 L (8.7-10.3) mg/dL Microbiology - Last 24 Hours (Table) 07/23/20 10:37 Blood Culture - Preliminary Blood No Growth after 48 hours 07/24/20 12:20 Gram Stain - Preliminary Leg - Left Wound Culture - Preliminary Assessment and Plan Plan: -Left leg cellulitis: Patient is on cefazolin and both vancomycin as well as Unasyn have been discontinued, infectious disease following patient is still having fevers no improvement and sepsis will add vancomycin to cover staph -Sepsis, present on admission, secondary to cellulitis of the left lower extremity -Fevers secondary to above, will continue Tylenol and Motrin and monitor vital signs closely -Diabetes mellitus type 2, will continue sliding scale and hold oral antidiabetic's and repeat BMP to monitor creatinine -Ruled out DVT: Doppler of the left lower extremity was negative -Acute renal failure baseline creatinine is around 1 present creatinine is 1.2. Improving. Continue to hold losartan and metformin and Lasix and will continue gentle IV hydration at 50 mL per hour and likely discontinue fluids tomorrow after repeat labs. -Hypertension, continue with Norvasc and monitor vital signs closely. Presently holding lisinopril due to elevated creatinine and will repeat labs in the a.m. -Hyperlipidemia -Obesity -DVT prophylaxis with heparin subcutaneous -GI prophylaxis with Pepcid
[2020-07-25] MEDS: VANCOMYCIN 2,000 MG in SODIUM CHLORIDE 0.9% 500 ML 500 ML IVPB SCH (15:00)
--- NOTE | 2020-07-25 16:48 | PN ---
PROGRESS NOTE DATE OF SERVICE: 07/25/2020. REASON FOR FOLLOWUP: Left lower extremity cellulitis. INTERVAL HISTORY: Patient is still running a low-grade fever of 100.4-102 early this morning. The patient denies having any chest pain. No shortness of breath. No cough. No nausea. No vomiting. No abdominal pain. No worsening pain to the left leg. PHYSICAL EXAMINATION: Blood pressure 141/72 with a pulse of 104. Temperature 100.4. The patient is 92% on room air. General description: The patient is an elderly male lying in bed in no distress. Respiratory system: Unlabored breathing. Clear to auscultation anteriorly. Heart S1, S2. Regular rate and rhythm. Abdomen soft, no tenderness. LABORATORY DATA: Hemoglobin is 12.1, white count 19.5, BUN of 18, creatinine is 1.2. DIAGNOSTIC IMPRESSION AND PLAN: Patient with acute left lower extremity cellulitis in this patient who did have persistent fever and worsening of the white count with concern for the left lower extremity cellulitis, concern for possible abscess. CT will be obtained. Antibiotic will be switched to vancomycin and will monitor clinical course closely. MMODL / IJN: [id number] /
[2020-07-25 17:00] LABS: Glucose,Whole Blood 129 mg/dL (75-99)
--- NOTE | 2020-07-25 18:35 | CT ---
EXAMINATION TYPE: CT lower leg LT w con DATE OF EXAM: 07/25/2020 COMPARISON: None HISTORY: Left lower leg cellulitis CT DLP: 1287 mGycm Automated exposure control for dose reduction was used. CONTRAST: Performed with IV Contrast, patient injected with 100 mL of Isovue 300. Images obtained from the distal femur to the bottom of the foot with IV contrast. There is diffuse subcutaneous edema around the lower leg. There is more fluid accumulation around the gastrocnemius muscle posteriorly. There is pretibial edema. There is no evidence of knee joint effus ion. There is some osteoarthritis in the medial joint space of the knee with joint space narrowing an d spurring of the femoral and tibial condyles. I see no focal bone destruction. There is no evidence for fracture. There is plantar calcaneal spur formation. The bones of the foot appear intact. I see n o focal bone destruction. Ankle mortise is anatomic. There is atherosclerotic vascular calcification in the lower leg. I see no pathologic enhancement. There is edema around the ankle. IMPRESSION: Diffuse subcutaneous edema around the lower leg. Atherosclerotic vascular disease. No evidence of an abscess. No evidence of fracture. No sign of osteomyelitis. Osteoarthritis in the medial joint space of the kn ee.
[2020-07-25] MEDS: ATORVASTATIN 40 MG TAB PO SCH (20:22)
[2020-07-25 20:32] LABS: Glucose,Whole Blood 138 mg/dL (75-99)
[2020-07-26] MEDS: HEPARIN SODIUM,PORCINE 5,000 UNIT/ML 1 ML VIAL SQ SCH ×3 (00:21→12:58)
[2020-07-26] MEDS: ACETAMINOPHEN TAB 325 MG TAB PO PRN ×2 (04:37→12:34)
[2020-07-26] MEDS: SODIUM CHLORIDE 0.9% 1,000 ML IV SCH (05:25)
[2020-07-26 07:04] LABS: Glucose,Whole Blood 134 mg/dL (75-99)
[2020-07-26] MEDS: INSULIN ASPART (NovoLOG) 100 UNIT/ML VIAL SQ SCH ×4 (07:35→20:43)
[2020-07-26] MEDS: ASPIRIN 81 MG PO SCH (07:42)
[2020-07-26] MEDS: FAMOTIDINE 20 MG TAB PO SCH ×2 (07:42→20:43)
[2020-07-26] MEDS: VANCOMYCIN 2,000 MG in SODIUM CHLORIDE 0.9% 500 ML 500 ML IVPB SCH (07:43)
[2020-07-26] MEDS: amLODIPine 5 MG TAB PO SCH ×2 (07:46→20:43)
[2020-07-26 09:14] LABS: Basophils % (A) 0.5 %; Eosinophils # (A) 0.06 X 10*3/uL (0.04-0.35); Eosinophils % (A) 0.3 %; HCT 37.2 % (39.6-50.0); HGB 12.5 g/dL (13.0-17.0); Lymphocytes # (A) 0.79 X 10*3/uL (0.90-5.00); Lymphocytes % (A) 3.8 %; MCH 28.7 pg (27.0-32.0); MCHC 33.6 g/dL (32.0-37.0); MCV 85.5 fL (80.0-97.0); Mean Platelet Volume 11.8 fL (9.5-12.2); Monocytes # (A) 1.18 X 10*3/uL (0.20-1.00); Monocytes % (A) 5.7 %; Neutrophils # (A) 18.43 X 10*3/uL (1.80-7.70); Neutrophils % (A) 88.6 %; Platelet Count 159 X 10*3/uL (140-440); RBC 4.35 X 10*6/uL (4.40-5.60); RDW 12.8 % (11.5-14.5); WBC 20.79 X 10*3/uL (4.50-10.00)
[2020-07-26 11:24] LABS: African American GFR (CKD) 99.2 (60.0-200.0); Anion Gap 9.5 mmol/L (4.00-12.00); BUN/Creat Ratio 16.67 Ratio (12.00-20.00); C Reactive Protein 23.3 mg/dL (0.0-0.8); Calcium 8.5 mg/dL (8.7-10.3); Carbon Dioxide 23.5 mmol/L (21.6-31.8); Non-African American GFR(CKD) 85.6 (60.0-200.0); Potassium 3.6 mmol/L (3.5-5.5)
[2020-07-26 11:52] LABS: Glucose,Whole Blood 137 mg/dL (75-99)
[2020-07-26] MEDS: CLINDAMYCIN 900 MG in DEXTROSE 5% IN WATER 50 ML IVPB SCH ×2 (16:48)
[2020-07-26 17:15] LABS: Glucose,Whole Blood 113 mg/dL (75-99)
--- NOTE | 2020-07-26 18:38 | PN ---
PROGRESS NOTE DATE OF SERVICE: 07/26/2020 REASON FOR FOLLOWUP: Left lower extremity cellulitis. INTERVAL HISTORY: Patient did spike another fever this afternoon of 101.7 degrees Fahrenheit. The patient denies having any chest pain, shortness of breath or cough. No nausea. No vomiting. No abdominal pain. No worsening pain in the left lower extremity. PHYSICAL EXAMINATION: Blood pressure 126/75, pulse of 102, temperature 101.7. He is 93% on room air. GENERAL DESCRIPTION: The patient is an elderly male up in the bed in no distress. RESPIRATORY system: Unlabored breathing, clear to auscultation anteriorly. HEART: S1, S2. Regular rate and rhythm. ABDOMEN: Soft, no tenderness. Left lower extremity swelling and redness has slightly decreased. Minimal drainage. LABS: Hemoglobin 12.5, white count 20.79, BUN of 15, creatinine 0.9. Local culture positive for Streptococcus pyogenes. CT was negative for any abscess. DIAGNOSTIC IMPRESSION AND PLAN: Patient with acute left lower extremity cellulitis in this patient with persistent fever that required further workup including a CT that was negative for any abscess. Culture now showing Streptococcus agalactiae. Antibiotic was adjusted to cefazolin and clindamycin. Local care with dry Aquacel Silver dressing to the open area and Alexandro wrap and we will monitor clinical course closely. MMODL / IJN: [id number] /
[2020-07-26 20:26] LABS: Glucose,Whole Blood 130 mg/dL (75-99)
[2020-07-26] MEDS: ATORVASTATIN 40 MG TAB PO SCH (20:43)
[2020-07-27] MEDS ORDERED: VANCOMYCIN 2,000 MG in SODIUM CHLORIDE 0.9% 500 ML 500 ML IVPB SCH ×2
[2020-07-27] MEDS: CLINDAMYCIN 900 MG in DEXTROSE 5% IN WATER 50 ML IVPB SCH ×8 (00:01→23:45)
[2020-07-27] MEDS: HEPARIN SODIUM,PORCINE 5,000 UNIT/ML 1 ML VIAL SQ SCH ×4 (00:03→23:45)
[2020-07-27 07:03] LABS: Glucose,Whole Blood 132 mg/dL (75-99)
[2020-07-27] MEDS: INSULIN ASPART (NovoLOG) 100 UNIT/ML VIAL SQ SCH ×4 (07:25→20:45)
[2020-07-27] MEDS: FAMOTIDINE 20 MG TAB PO SCH ×2 (08:34→20:45)
[2020-07-27] MEDS: ASPIRIN 81 MG PO SCH (08:34)
[2020-07-27] MEDS: amLODIPine 5 MG TAB PO SCH ×2 (08:36→20:45)
[2020-07-27 09:36] LABS: African American GFR (CKD) 87.4 (60.0-200.0); Anion Gap 8.9 mmol/L (4.00-12.00); Calcium 7.8 mg/dL (8.7-10.3); Carbon Dioxide 27.1 mmol/L (21.6-31.8); Non-African American GFR(CKD) 75.4 (60.0-200.0); Potassium 3.3 mmol/L (3.5-5.5)
[2020-07-27] MEDS ORDERED: POTASSIUM CHLORIDE ER 20 MEQ TAB.ER PO STA (09:43)
[2020-07-27 11:36] LABS: Glucose,Whole Blood 153 mg/dL (75-99)
--- NOTE | 2020-07-27 15:44 | P.PN ---
Subjective Progress Note Date: 07/27/20 70-year-old male who presents emergency Department stating that he was here last night but refused to stay. Patient comes back because his leg is more red and more swollen and continues to have a temperature. Patient states she's been to her Motrin Tylenol throughout the night. Patient states she was given a prescription for and about if they did not get it filled. Patient denies any difficulty breathing shortness of breath or cough per patient denies abdominal pain patient denies nausea vomiting diarrhea. Patient headache patient denies numbness weakness. Patient fever temperature was 103 at home.. And had normal temperature here. 07/27/2020 Patient is seen and evaluated in follow-up continues to have left lower extremity swelling and weeping noted although patient states the swelling has much improved. Continues with low-grade fevers. Infectious disease following an patient is maintained on IV cefazolin along with IV clindamycin. Wound cultures finalized showing strep pyogenes group A. Will discuss with infectious disease about discharge antibiotic therapy. Patient creatinine is 1.0. Will repeat a.m. labs. Review of systems: Constitutional: No reports of fatigue, intermittent low-grade fevers, denies chills Cardiovascular: No reports of chest pain or palpitations Respiratory: No reports of shortness of breath or cough GI: No reports of nausea, vomiting, or diarrhea : No reports of dysuria or retention Neurovascular: No reports of weakness or numbness All medications have been reviewed Objective - Vital Signs Vital signs: Vital Signs Temp 98.6 F 07/27/20 04:11 Pulse 102 H 07/27/20 04:11 Resp 20 07/27/20 04:11 BP 167/79 07/27/20 08:36 Pulse Ox 90 L 07/27/20 04:11 Intake & Output 07/26/20 07/27/20 07/27/20 18:59 06:59 18:59 Intake Total 750 100 Balance 750 100 Intake: Intake, IV Titration 150 100 Amount Clindamycin 900 mg In 50 50 Dextrose 5% in Water 50 ml @ 50 mls/hr IVPB Q8HR [facility] Rx#:[id number] ceFAZolin 2 gm In Sodium 100 50 Chloride 0.9% 50 ml @ 100 mls/hr IVPB Q8HR [facility] Rx# :[id number] Oral 600 Other: Voiding Method Toilet Toilet Toilet # Voids 1 - Exam GENERAL: The patient is alert and oriented x3, not in any acute distress. Well developed, well nourished. HEENT: Pupils are round and equally reacting to light. EOMI. No scleral icterus. No conjunctival pallor. Normocephalic, atraumatic. No pharyngeal erythema. No thyromegaly. CARDIOVASCULAR: S1 and S2 present. No murmurs, rubs, or gallops. PULMONARY: Chest is clear to auscultation, no wheezing or crackles. ABDOMEN: Soft, obese, nontender, nondistended, normoactive bowel sounds. No palpable organomegaly. MUSCULOSKELETAL: No joint swelling or deformity. EXTREMITIES: No cyanosis, clubbing, edema noted of the left lower extremity NEUROLOGICAL: Gross neurological examination did not reveal any focal deficits. SKIN: Edema of the left leg with swelling and weeping involving the whole leg extending from proximal ankle area to the knee circumferential - Labs CBC & Chem 7: 07/26/20 05:35 07/27/20 05:23 Labs: Abnormal Lab Results - Last 24 Hours (Table) 07/26/20 07/26/20 07/27/20 Range/Units 17:15 20:12 05:23 Potassium 3.3 L (3.5-5.5) mmol/L POC Glucose (mg/dL) 113 H 130 H (75-99) mg/dL Calcium 7.8 L (8.7-10.3) mg/dL 07/27/20 07/27/20 Range/Units 07:02 11:35 Potassium (3.5-5.5) mmol/L POC Glucose (mg/dL) 132 H 153 H (75-99) mg/dL Calcium (8.7-10.3) mg/dL Microbiology - Last 24 Hours (Table) 07/23/20 10:37 Blood Culture - Preliminary Blood No Growth after 72 hours 07/24/20 12:20 Gram Stain - Preliminary Leg - Left Wound Culture - Preliminary Strep pyogenes (grp a) Assessment and Plan Assessment: -Left leg cellulitis: Patient is on cefazolin and clindamycin, infectious disease following. Wound cultures finalized showing strep pyogenes which is pansensitive -Sepsis, present on admission, secondary to cellulitis of the left lower extremity -Fevers secondary to above, will continue Tylenol and Motrin and monitor vital signs closely -Diabetes mellitus type 2, will continue sliding scale and hold oral antidiabetic's and repeat BMP to monitor creatinine -Ruled out DVT: Doppler of the left lower extremity was negative -Acute renal failure baseline creatinine is around 1 present creatinine is 1.0. Improved. Continue to hold losartan and metformin and Lasix -Hypertension, continue with Norvasc and monitor vital signs closely. Presently holding lisinopril due to elevated creatinine and will repeat labs in the a.m. -Hyperlipidemia -Obesity -DVT prophylaxis with heparin subcutaneous -GI prophylaxis with Pepcid Plan: Continue to monitor for fevers and treat with Tylenol as needed. Instructed the patient to increase activity as tolerated and sit up out of the bed. Continue to monitor blood sugars before meals and at bedtime and treat accordingly with sliding scale. Potassium was 3.3 today and replaced will repeat a.m. labs and monitor. Will discuss with infectious disease about discharge antibiotics recommendations as patient is currently maintained on IV ceftriaxone along with clindamycin and wound cultures resulted showing strep pyogenes group A which is pansensitive. Possible discharge in 24 hours.
[2020-07-27 16:40] LABS: Glucose,Whole Blood 150 mg/dL (75-99)
[2020-07-27 20:36] LABS: Glucose,Whole Blood 141 mg/dL (75-99)
[2020-07-27] MEDS: ATORVASTATIN 40 MG TAB PO SCH (20:45)
[2020-07-28] MEDS: ACETAMINOPHEN TAB 325 MG TAB PO PRN (04:13)
[2020-07-28 07:14] LABS: Glucose,Whole Blood 140 mg/dL (75-99)
[2020-07-28 07:40] LABS: African American GFR (CKD) >90 (>60 ml/min/1.73 sqM); Non-African American GFR(CKD) 78 (>60 ml/min/1.73 sqM)
[2020-07-28] MEDS: ASPIRIN 81 MG PO SCH (07:56)
[2020-07-28] MEDS: HEPARIN SODIUM,PORCINE 5,000 UNIT/ML 1 ML VIAL SQ SCH ×2 (07:56→15:24)
[2020-07-28] MEDS: FAMOTIDINE 20 MG TAB PO SCH ×2 (07:56→20:57)
[2020-07-28] MEDS: INSULIN ASPART (NovoLOG) 100 UNIT/ML VIAL SQ SCH ×4 (07:56→20:57)
[2020-07-28] MEDS: amLODIPine 5 MG TAB PO SCH ×2 (07:57→20:57)
[2020-07-28] MEDS: CLINDAMYCIN 900 MG in DEXTROSE 5% IN WATER 50 ML IVPB SCH ×2 (09:09)
[2020-07-28] MEDS ORDERED: POTASSIUM CHLORIDE ER 20 MEQ TAB.ER PO STA (10:59)
[2020-07-28 12:44] LABS: Glucose,Whole Blood 136 mg/dL (75-99)
[2020-07-28] MEDS ORDERED: FUROSEMIDE 10 MG/ML 4 ML VIAL IV STA (15:16)
--- NOTE | 2020-07-28 15:21 | P.PN ---
Subjective Progress Note Date: 07/28/20 70-year-old male who presents emergency Department stating that he was here last night but refused to stay. Patient comes back because his leg is more red and more swollen and continues to have a temperature. Patient states she's been to her Motrin Tylenol throughout the night. Patient states she was given a prescription for and about if they did not get it filled. Patient denies any difficulty breathing shortness of breath or cough per patient denies abdominal pain patient denies nausea vomiting diarrhea. Patient headache patient denies numbness weakness. Patient fever temperature was 103 at home.. And had normal temperature here. 07/27/2020 Patient is seen and evaluated in follow-up continues to have left lower extremity swelling and weeping noted although patient states the swelling has much improved. Continues with low-grade fevers. Infectious disease following an patient is maintained on IV cefazolin along with IV clindamycin. Wound cultures finalized showing strep pyogenes group A. Will discuss with infectious disease about discharge antibiotic therapy. Patient creatinine is 1.0. Will repeat a.m. labs. 07/28/2020 Patient is seen this morning continues to have left lower extremity swelling and bruising noted to the Alexandro wraps and ABD pad multiple dressing changes. Patient to be swollen and will give a dose of IV Lasix. Patient also instructed on multiple occasions to elevate the lower extremities while at rest as dependent edema is present. Infectious disease following an patient IV antibiotic coverage being transitioned to daptomycin. Patient will likely require IV antibiotic therapy outpatient and case management following working on verification of coverage. Patient scheduled to receive a midline. Potassium was 3.2 is morning and replaced. Will repeat a.m. labs. Review of systems: Constitutional: No reports of fatigue, denies chills Cardiovascular: No reports of chest pain or palpitations Respiratory: No reports of shortness of breath or cough GI: No reports of nausea, vomiting, or diarrhea : No reports of dysuria or retention Neurovascular: No reports of weakness or numbness All medications have been reviewed Objective - Vital Signs Vital signs: Vital Signs Temp 98.5 F 07/28/20 07:20 Pulse 71 07/28/20 07:20 Resp 16 07/28/20 07:20 BP 137/73 07/28/20 07:20 Pulse Ox 94 L 07/28/20 07:20 Intake & Output 07/27/20 07/28/20 07/28/20 18:59 06:59 18:59 Intake Total 540 1000 Balance 540 1000 Intake: Oral 540 1000 Other: Voiding Method Toilet Toilet Toilet # Voids 1 3 - Exam GENERAL: The patient is alert and oriented x3, not in any acute distress. Well developed, well nourished. HEENT: Pupils are round and equally reacting to light. EOMI. No scleral icterus. No conjunctival pallor. Normocephalic, atraumatic. No pharyngeal erythema. No thyromegaly. CARDIOVASCULAR: S1 and S2 present. No murmurs, rubs, or gallops. PULMONARY: Chest is clear to auscultation, no wheezing or crackles. ABDOMEN: Soft, obese, nontender, nondistended, normoactive bowel sounds. No palpable organomegaly. MUSCULOSKELETAL: No joint swelling or deformity. EXTREMITIES: No cyanosis, clubbing, edema noted of the left lower extremity NEUROLOGICAL: Gross neurological examination did not reveal any focal deficits. SKIN: Edema of the left leg with swelling and weeping involving the whole leg extending from proximal ankle area to the knee circumferential, weeping through Alexandro wraps and pads noted on exam - Labs CBC & Chem 7: 07/26/20 05:35 07/28/20 06:21 Labs: Abnormal Lab Results - Last 24 Hours (Table) 07/27/20 07/27/20 07/28/20 Range/Units 16:39 20:34 06:21 Potassium 3.2 L (3.5-5.1) mmol/L POC Glucose (mg/dL) 150 H 141 H (75-99) mg/dL 07/28/20 07/28/20 Range/Units 07:13 12:42 Potassium (3.5-5.1) mmol/L POC Glucose (mg/dL) 140 H 136 H (75-99) mg/dL Microbiology - Last 24 Hours (Table) 07/23/20 10:37 Blood Culture - Preliminary Blood No Growth after 120 hours 07/24/20 12:20 Gram Stain - Final Leg - Left Wound Culture - Final Strep pyogenes (grp a) Assessment and Plan Assessment: -Left leg cellulitis: Patient being transitioned to daptomycin, infectious disease following. Patient will receive a midline for outpatient antibiotics. Wound cultures finalized showing strep pyogenes -Sepsis, present on admission, secondary to cellulitis of the left lower extremity -Mild Hypokalemia, potassium 3.2 and being replaced will repeat a.m. labs -Fevers secondary to above, will continue Tylenol and Motrin and monitor vital signs closely -Diabetes mellitus type 2, will continue sliding scale and hold oral antidiabetic's and repeat BMP to monitor creatinine -Ruled out DVT: Doppler of the left lower extremity was negative -Acute renal failure baseline creatinine is around 1 present creatinine is 0.98. Improved. Continue to hold losartan and metformin -Hypertension, continue with Norvasc and monitor vital signs closely. Presently holding lisinopril due to elevated creatinine and will repeat labs in the a.m. -Hyperlipidemia -Obesity -DVT prophylaxis with heparin subcutaneous -GI prophylaxis with Pepcid Plan: Continue to monitor for fevers and treat with Tylenol as needed. Instructed the patient to increase activity as tolerated and sit up out of the bed. Continue t o monitor blood sugars before meals and at bedtime and treat accordingly with sliding scale. Potassium was 3.2 today and replaced will repeat a.m. labs and monitor. Patient scheduled to receive a midline and IV antibiotics transitioned to daptomycin. Case management following working on discharge planning needs for outpatient IV antibiotic therapy. Possible discharge in 24 hours.
[2020-07-28] MEDS ORDERED: DAPTOmycin 500 MG in SODIUM CHLORIDE 0.9% 50 ML IVPB SCH (16:00)
[2020-07-28 17:03] LABS: Glucose,Whole Blood 165 mg/dL (75-99)
[2020-07-28 20:04] LABS: Glucose,Whole Blood 153 mg/dL (75-99)
--- NOTE | 2020-07-28 23:17 | PN ---
PROGRESS NOTE DATE OF SERVICE: 07/28/2020 REASON FOR FOLLOWUP: Left lower extremity cellulitis. INTERVAL HISTORY: The patient has been running a low-grade fever of 100.7 to 99.7. The patient denies having any chest pain, shortness of breath or cough. Overall pain and discomfort to the left lower extremity has slightly decreased. No nausea, no vomiting and no diarrhea. PHYSICAL EXAMINATION: Blood pressure 152/75, pulse of 110, temperature 100. He is 94% on room air. General description is an elderly male up in the chair in no distress. RESPIRATORY SYSTEM: Unlabored breathing. Clear to auscultation anteriorly. HEART: S1, S2. Regular rate and rhythm. ABDOMEN: Soft. No tenderness. Left lower extremity still has significant swelling and redness and minimal drainage. LABS: Creatinine 0.98. DIAGNOSTIC IMPRESSION AND PLAN: Patient with extensive left lower extremity cellulitis. Culture showing Streptococcus pyogenes. However, the patient was not clinically responding to the cefazolin and clindamycin. At this time antibiotic will be switched over to daptomycin. Plan for a midline and outpatient IV antibiotic therapy on discharge. Discussed with Case Management to arrange for outpatient antibiotic. Continue with supportive care. MMODL / IJN: [id number] /
[2020-07-29] MEDS: HEPARIN SODIUM,PORCINE 5,000 UNIT/ML 1 ML VIAL SQ SCH ×2 (00:23→08:08)
[2020-07-29 06:57] LABS: Glucose,Whole Blood 134 mg/dL (75-99)
[2020-07-29] MEDS: ASPIRIN 81 MG PO SCH (08:08)
[2020-07-29] MEDS: amLODIPine 5 MG TAB PO SCH (08:08)
[2020-07-29] MEDS: FAMOTIDINE 20 MG TAB PO SCH (08:08)
[2020-07-29] MEDS: INSULIN ASPART (NovoLOG) 100 UNIT/ML VIAL SQ SCH ×2 (08:14→13:09)
[2020-07-29 08:40] VITALS: RESP 16
[2020-07-29 10:54] LABS: African American GFR (CKD) 87.4 (60.0-200.0); Anion Gap 13.4 mmol/L (4.00-12.00); Calcium 7.3 mg/dL (8.7-10.3); Carbon Dioxide 26.6 mmol/L (21.6-31.8); Non-African American GFR(CKD) 75.4 (60.0-200.0); Potassium 3.4 mmol/L (3.5-5.5)
[2020-07-29 11:21] LABS: Glucose,Whole Blood 161 mg/dL (75-99)
[2020-07-29] MEDS ORDERED: POTASSIUM CHLORIDE ER 20 MEQ TAB.ER PO STA (12:00)
[2020-07-29 13:35] VITALS: BP 143/76; PULSE 86; TEMP 99
[2020-07-29 13:50] VITALS: BMI 41.0
--- NOTE | 2020-07-29 15:38 | P.DS ---
Providers Date of admission: 07/23/20 12:13 Expected date of discharge: 07/29/20 Attending physician: Lester Roa Consults: 07/23/20 14:27 Consult Physician Routine Consulting Provider: Emmy Peraza Consult Reason/Comments: left leg cellulitis Do you want consulting provider notified?: Yes Primary care physician: Heri Ramirez Hospital Course: Final diagnosis -Left leg cellulitis, Wound cultures finalized showing strep pyogenes -Sepsis, present on admission, secondary to cellulitis of the left lower extremity -Mild Hypokalemia, improved -Fevers secondary to above -Diabetes mellitus type 2 -Ruled out DVT: Doppler of the left lower extremity was negative -Acute renal failure -Hypertension -Hyperlipidemia -Obesity -DVT prophylaxis -GI prophylaxis Discharge disposition Patient is being discharged in a stable condition with guarded prognosis to home. Patient will follow-up with Dr. Heri Ramirez in the outpatient setting upon discharge. Patient is to continue with IV antibiotics in the form of daptomycin per infectious disease recommendations. Patient will be going to the infusion center in [place]. Total time taken is greater than 35 minutes. Hospital course 70-year-old male who was admitted for left leg swelling and redness along with fevers with the possibility of cellulitis and sepsis, present on admission and was being closely monitored. Patient was started on IV antibiotics and infectious disease was consulted and following. Cultures finalized showing strep pyogenes group A and was started on cefazolin and clindamycin. Patient continue to have redness and swelling along with weeping to the left lower extremity and IV antibiotics transitioned to daptomycin. Patient received a midline and will be continuing with IV antibiotic therapy for another 2 weeks and will be going to the [place] [facility] for treatment. Patient will also follow-up with infectious disease in the outpatient setting and instructed to follow-up with primary care provider upon discharge. Currently no reports of chest pain, shortness of breath, or palpitations. Patient is afebrile. No reports of nausea or vomiting and patient is tolerating diet. Patient will be discharged home today. Patient instructed to continue to elevate lower extremities while at rest and continue to use Alexandro wraps along with dressing changes and local wound care to the left lower extremity. Oral Lasix was resumed. On exam vital signs are stable. Cardio S1, S2 are muffled. Respiratory system shows diminished breath sounds at the bases with no wheezing or rhonchi noted. Abdomen is soft and obese, and nontender. Nervous system shows no focal deficit. Please refer to medication reconciliation sheet for a list of medications. Patient Condition at Discharge: Stable Plan - Discharge Summary Discharge Rx Participant: No New Discharge Prescriptions: New DAPTOmycin [Cubicin] 500 mg IVPB Q24H 14 Days #14 vial Acetaminophen Tab [Tylenol] 650 mg PO Q4HR PRN 30 Days #30 tab PRN Reason: Fever And/ Or Pain Continue Simvastatin [Zocor] 80 mg PO HS Potassium Chloride ER [K-Dur 10] 10 meq PO DAILY Aspirin EC [Ecotrin Low Dose] 81 mg PO DAILY metFORMIN HCL [Glucophage] 500 mg PO DAILY amLODIPine [Norvasc] 5 mg PO BID Furosemide [Lasix] 20 mg PO BID Discontinued lisinopriL 20 mg PO BID Discharge Medication List Aspirin EC [Ecotrin Low Dose] 81 mg PO DAILY 07/23/20 [History] Furosemide [Lasix] 20 mg PO BID 07/23/20 [History] Potassium Chloride ER [K-Dur 10] 10 meq PO DAILY 07/23/20 [History] Simvastatin [Zocor] 80 mg PO HS 07/23/20 [History] amLODIPine [Norvasc] 5 mg PO BID 07/23/20 [History] metFORMIN HCL [Glucophage] 500 mg PO DAILY 07/23/20 [History] Acetaminophen Tab [Tylenol] 650 mg PO Q4HR PRN 30 Days #30 tab 07/29/20 [Rx] DAPTOmycin [Cubicin] 500 mg IVPB Q24H 14 Days #14 vial 07/29/20 [Rx] Follow up Appointment(s)/Referral(s): Heri Ramirez MD [Primary Care Provider] - 08/06/20 11:00 am Patient Instructions/Handouts: Daptomycin (By injection), Cellulitis (DC), Type 2 Diabetes in Adults: New Diagnosis (DC) Activity/Diet/Wound Care/Special Instructions: Activity Limited until follow-up follow up with primary care provider upon discharge Follow-up with infectious disease in the outpatient setting Continue IV antibiotic therapy daily for the next 2 weeks Continue to elevate lower extremity while at rest and continue to use Alexandro wraps from toes to knee Continue with local wound care Continue to monitor for fevers and treat with Tylenol and/or Motrin alternate Continue current heart healthy consistent carb diet Follow-up with primary care provider to receive second dose of Covid immunization Discharge Disposition: HOME SELF-CARE
--- NOTE | 2020-07-29 16:12 | PN ---
PROGRESS NOTE DATE OF SERVICE: 07/29/2020 REASON FOR FOLLOWUP: Left lower extremity cellulitis. INTERVAL HISTORY: The patient is currently afebrile. The patient is breathing comfortably. Denies having any chest pain or shortness of breath or cough. No nausea, no vomiting, no abdominal pain or new to the left leg. PHYSICAL EXAMINATION: Blood pressure 143/76, pulse 86, temperature 99. He is 95% on room air. General description is an elderly male lying in bed in no distress. RESPIRATORY SYSTEM: Unlabored breathing. Clear to auscultation anteriorly. HEART: S1, S2. Regular rate and rhythm. ABDOMEN: Soft. No tenderness. Left leg swelling and redness decreased. LABS: Creatinine 1.0. Blood culture negative. DIAGNOSTIC IMPRESSION AND PLAN: Patient with acute left lower extremity cellulitis. Culture positive for Streptococcus pyogenes; however, the patient did not clinically respond to cefazolin and clindamycin. He is currently on daptomycin with resolution of his fever; to continue through a midline for another 2 weeks with close outpatient followup. MMODL / IJN: [id number] /
== END 2020-07-29 16:49 | disposition home or self-care (01) | DRG 872 ==
LOC: EC 09:20 → 4SSUR 12:13 → 5NMEDONC 12:27
PROVIDERS: ADMIT Internal Medicine; ATTEND Internal Medicine
PROC: 05HY33Z Insertion of Infusion Device into Upper Vein, Percutaneous Approach (ICD-10-PCS; principal; 2020-07-29 07:30)
DX: A40.0 Sepsis due to streptococcus, group A (principal); L03.116 Cellulitis of left lower limb; N17.9 Acute kidney failure, unspecified; Z68.41 Body mass index [BMI] 40.0-44.9, adult; E11.9 Type 2 diabetes mellitus without complications; E66.9 Obesity, unspecified; Z20.822 Contact with and (suspected) exposure to COVID-19; E78.5 Hyperlipidemia, unspecified; E87.6 Hypokalemia; I10 Essential (primary) hypertension; Z87.891 Personal history of nicotine dependence; Z82.49 Family history of ischemic heart disease and other diseases of the circulatory system; Z79.899 Other long term (current) drug therapy; Z79.84 Long term (current) use of oral hypoglycemic drugs; Z79.82 Long term (current) use of aspirin
CPT/HCPCS: 36410; 36415; 76937; 80048; 80053; 82565; 83605; 84132; 85025; 85610; 85730; 86140; 87040; 87070; 87077; 87186; 87205; 87635; 93005; 94760; 96365; 96366; 96367; 99285